=== PATIENT | male | born 1970 | race Caucasian/White ===

== ENCOUNTER 2017-07-24 01:43 | Emergency (ER) | payer SELFPAY ==
[~2017-07-24] VITALS: Ht 170.2 cm; Wt 75.0 kg
[2017-07-24 04:27] LABS: BASOPHILS % (AUTO) 0.2 % (0.0-2.0); EOSINOPHILS % (AUTO) 0.1 % (1.0-6.0); HEMATOCRIT 43.8 % (41-53); HEMOGLOBIN 15.4 g/dL (13.5-17.5); LYMPHOCYTES # (AUTO) 1.6 K/uL (1.0-4.8); MEAN CORPUSCULAR HEMOGLOBIN 33.4 pg (26.0-34.0); MEAN CORPUSCULAR HGB CONC 35.2 G/dL (31.0-37.0); MEAN CORPUSCULAR VOLUME 95 fL (80-100); MONOCYTES # (AUTO) 0.8 K/uL (0.1-1.0); MONOCYTES % (AUTO) 8.1 % (2.0-9.0); NEUTROPHILS # (AUTO) 7.5 K/uL (1.8-7.7); NEUTROPHILS % (AUTO) 75.6 % (40.0-70.0); RED BLOOD CELL COUNT(AUTO) 4.61 MIL/uL (4.50-5.90); RED CELL DISTRIBUTION WIDTH 13.2 % (11.5-14.5)
[2017-07-24 04:41] LABS: PLATELET COUNT (AUTO) 277 K/uL (150-450)
[2017-07-24 04:55] LABS: ANION GAP 8 mmol/L (8-16); CALCIUM, TOTAL 9.6 mg/dL (8.8-10.5); CARBON DIOXIDE 26 mmol/L (22-29); CHLORIDE 102 mmol/L (98-107); GLOMERULAR FILTR. RATE CALC > 60 mL/min (>60); GLUCOSE,RANDOM 142 mg/dL (70-110); POTASSIUM 3.7 mmol/L (3.5-5.1); SODIUM SERUM 136 mmol/L (136-145); UREA NITROGEN, BLOOD 14 mg/dL (7-18)
[2017-07-24 05:01] LABS: ALANINE AMINOTRANSFERASE 24 U/L (12-78); ALBUMIN 3.5 g/dL (3.4-5.0); ALKALINE PHOSPHATASE 124 U/L (46-116); ASPARTATE AMINOTRANSFERASE 22 U/L (15-37); BILIRUBIN,TOTAL 1.2 mg/dL (0.1-1.0); TOTAL PROTEIN, SERUM 7.4 g/dL (6.4-8.2)
[2017-07-24 05:07] LABS: PLATELET MORPHOLOGY COMMENT LARGE PLTS PRESENT
[2017-07-24 06:07] LABS: INFLUENZA TYPE A NEGATIVE FOR TYPE A (NEGATIVE); INFLUENZA TYPE B NEGATIVE FOR TYPE B (NEGATIVE)
[2017-07-24] MEDS ORDERED: SODIUM CHLORIDE 0.9% 1,000 ML IV ONE ×2 (06:30→07:00)
[2017-07-24] MEDS ORDERED: CeFAZolin 1 GM/DEXTROSE 50 ML IV ONE (06:30)
[2017-07-24] MEDS ORDERED: CeFAZolin 1 GM/DEXTROSE 10 ML IV ONE (06:30)
[2017-07-24] MEDS ORDERED: ONDANSETRON HCL 4 MG/2 ML VIAL IVP ONE (07:00)
[2017-07-24 09:15] VITALS: BP 118/90
== END 2017-07-24 09:38 | disposition home or self-care (01) ==
LOC: EMS 01:45
DX: L03.113 Cellulitis of right upper limb (principal); R50.9 Fever, unspecified; R25.2 Cramp and spasm
CPT/HCPCS: 36415; 80053; 83605; 85025; 87040; 87804; 93971; 96374; 99285; J0690; J7030; J2405

== ENCOUNTER 2020-09-04 21:37 | Emergency (ER) | payer MEDICAID ==
[~2020-09-04] VITALS: Ht 170.2 cm; Wt 78.6 kg
[~2020-09-04 21:37] MED LIST: AMLO-257 PO; METF-960 PO; NIAC500T7 PO; PANT-31 PO
[2020-09-04 23:05] LABS: APPEARANCE,URINE CLEAR (CLEAR); BILIRUBIN,URINE NEGATIVE (NEGATIVE); GLUCOSE, URINE (UA) >=1000 mg/dL (NEGATIVE); KETONES,URINE NEGATIVE (NEGATIVE); LEUKOCYTE ESTERASE ,URINE NEGATIVE (NEGATIVE); NITRATE,URINE NEGATIVE (NEGATIVE); OCCULT BLOOD,URINE NEGATIVE (NEGATIVE); PROTEIN,URINE NEGATIVE (NEGATIVE); UROBILINOGEN,URINE 0.2 mg/dL (<=1.0)
[2020-09-04 23:11] LABS: AMPHET/METH SCREEN,URINE NEGATIVE (NEGATIVE); BARBITURATE SCREEN, URINE NEGATIVE (NEGATIVE); BENZODIAZEPINES SCREEN,URINE POSITIVE (NEGATIVE); CANNABINOID SCREEN,URINE NEGATIVE (NEGATIVE); COCAINE SCREEN,URINE NEGATIVE (NEGATIVE); METHADONE SCREEN, URINE NEGATIVE (NEGATIVE); OPIATE SCREEN,URINE NEGATIVE (NEGATIVE)
[2020-09-04 23:14] LABS: PHENCYCLIDINE SCREEN,URINE NEGATIVE (NEGATIVE)
[2020-09-04 23:22] LABS: BACTERIA,URINE None Seen /HPF (None Seen); RBC,URINE 0-2 /HPF (0-2); WBC,URINE 0-2 /HPF (0-5)
[2020-09-04] MEDS ORDERED: ACETAMINOPHEN 325 MG TABLET PO ONE (23:30)
[2020-09-04 23:52] LABS: HEMATOCRIT 24.8 % (41-53); HEMOGLOBIN 8.1 g/dL (13.5-17.5); MEAN CORPUSCULAR HEMOGLOBIN 34.1 pg (26.0-34.0); MEAN CORPUSCULAR HGB CONC 32.8 G/dL (31.0-37.0); MEAN CORPUSCULAR VOLUME 104 fL (80-100); PLATELET COUNT (AUTO) 215 K/uL (150-450); RED BLOOD CELL COUNT(AUTO) 2.39 MIL/uL (4.50-5.90); RED CELL DISTRIBUTION WIDTH 14.7 % (11.5-14.5)
[2020-09-05 00:04] LABS: ANION GAP 7 mmol/L (8-16); CALCIUM, TOTAL 9.5 mg/dL (8.8-10.5); CARBON DIOXIDE 27 mmol/L (22-29); CHLORIDE 102 mmol/L (98-107); CREATININE 0.95 mg/dL (0.60-1.30); GLOMERULAR FILTR. RATE CALC > 60 mL/min (>60); GLUCOSE,RANDOM 316 mg/dL (70-110); POTASSIUM 3.7 mmol/L (3.5-5.1); SODIUM SERUM 136 mmol/L (136-145); UREA NITROGEN, BLOOD 3 mg/dL (7-18)
[2020-09-05 00:07] LABS: PROTHROMBIN TIME 10.5 SEC (9.4-11.6)
[2020-09-05 00:10] LABS: ALANINE AMINOTRANSFERASE 40 U/L (12-78); ALBUMIN 1.9 g/dL (3.4-5.0); ALKALINE PHOSPHATASE 152 U/L (46-116); ASPARTATE AMINOTRANSFERASE 24 U/L (15-37); BAND NEUTROPHILS % (MANUAL) 0 % (0-5); LIPASE 1143 U/L (73-393); TOTAL PROTEIN, SERUM 6.3 g/dL (6.4-8.2)
[2020-09-05 00:36] LABS: B-TYPE NATRIURETIC PEPTIDE 133 pg/mL (0-100)
[2020-09-05 00:39] LABS: INFLUENZA TYPE A NEGATIVE FOR TYPE A (NEGATIVE); INFLUENZA TYPE B NEGATIVE FOR TYPE B (NEGATIVE)
[2020-09-05 00:45] LABS: EOSINOPHILS % (MANUAL) 2 % (1-6); LYMPHOCYTES % (MANUAL) 18 % (22-44); MONOCYTES % (MANUAL) 7 % (2-9); SEGMENTED NEUTROPHILS % 73 % (40-70)
[2020-09-05] MEDS ORDERED: INSULIN REGULAR, HUMAN 100 UNITS/ML IVP ONE (00:45)
[2020-09-05 01:30] VITALS: BP 136/71
[2020-09-05 04:26] LABS: GLUCOSE,POINT OF CARE 158 MG/DL (70-110)
[2020-09-05 06:52] LABS: GLUCOSE,POINT OF CARE 280 MG/DL (70-110)
== END 2020-09-05 02:29 | disposition home or self-care (01) ==
LOC: EMS 21:37
DX: U07.1 COVID-19 (principal); K85.20 Alcohol induced acute pancreatitis without necrosis or infection
CPT/HCPCS: 36415; 71045; 80053; 80307; 81001; 82962; 83690; 83880; 84484; 85025; 85610; 87040; 87804; 93005; 96361; 96374; 99285; J1815; U0003; 82948

== ENCOUNTER 2020-09-06 09:42 | Emergency (ER) | payer MEDICAID ==
[~2020-09-06] VITALS: Ht 167.6 cm; Wt 68.2 kg
[2020-09-06 11:01] LABS: BASOPHILS % (AUTO) 0.4 % (0.0-2.0); EOSINOPHILS % (AUTO) 0.6 % (1.0-6.0); HEMATOCRIT 23.9 % (41-53); LYMPHOCYTES # (AUTO) 0.8 K/uL (1.0-4.8); LYMPHOCYTES % (AUTO) 8.1 % (22.0-44.0); MEAN CORPUSCULAR HEMOGLOBIN 34.5 pg (26.0-34.0); MEAN CORPUSCULAR HGB CONC 33.3 G/dL (31.0-37.0); MEAN CORPUSCULAR VOLUME 104 fL (80-100); MONOCYTES # (AUTO) 0.5 K/uL (0.1-1.0); NEUTROPHILS # (AUTO) 8.6 K/uL (1.8-7.7); PLATELET COUNT (AUTO) 314 K/uL (150-450); RED BLOOD CELL COUNT(AUTO) 2.31 MIL/uL (4.50-5.90); RED CELL DISTRIBUTION WIDTH 14.3 % (11.5-14.5)
[2020-09-06 11:03] LABS: NEUTROPHILS % (AUTO) 85.9 % (40.0-70.0)
[2020-09-06 11:08] LABS: ANION GAP 8 mmol/L (8-16); CALCIUM, TOTAL 9.4 mg/dL (8.8-10.5); CARBON DIOXIDE 28 mmol/L (22-29); CHLORIDE 100 mmol/L (98-107); GLOMERULAR FILTR. RATE CALC > 60 mL/min (>60); GLUCOSE,RANDOM 365 mg/dL (70-110); POTASSIUM 4.1 mmol/L (3.5-5.1); SODIUM SERUM 136 mmol/L (136-145); UREA NITROGEN, BLOOD 5 mg/dL (7-18)
[2020-09-06 11:14] LABS: ALANINE AMINOTRANSFERASE 30 U/L (12-78); ALBUMIN 1.9 g/dL (3.4-5.0); ALKALINE PHOSPHATASE 135 U/L (46-116); ASPARTATE AMINOTRANSFERASE 21 U/L (15-37); BILIRUBIN,TOTAL 0.7 mg/dL (0.1-1.0); LIPASE 896 U/L (73-393); TOTAL PROTEIN, SERUM 6.2 g/dL (6.4-8.2)
[2020-09-06 11:19] LABS: ACETONE,BLOOD NEGATIVE (NEGATIVE)
[2020-09-06 12:58] VITALS: BP 121/61
== END 2020-09-06 13:30 | disposition home or self-care (01) ==
LOC: EMS 09:47
DX: K85.90 Acute pancreatitis without necrosis or infection, unspecified (principal); K68.19 Other retroperitoneal abscess; E11.9 Type 2 diabetes mellitus without complications; Z79.84 Long term (current) use of oral hypoglycemic drugs
CPT/HCPCS: 74176; 99284

== ENCOUNTER 2020-12-25 14:07 | Emergency (ER) | payer MEDICAID, OTHER ==
[~2020-12-25] VITALS: Ht 170.2 cm; Wt 68.2 kg
[2020-12-25 14:31] LABS: GLUCOMETER DEV NAME(LOC) ERT.5; GLUCOSE,POINT OF CARE 254 MG/DL (70-110)
[2020-12-25] MEDS ORDERED: MECLIZINE HCL 25 MG TABLET PO ONE (19:45)
[2020-12-25 19:51] LABS: BASOPHILS % (AUTO) 0.4 % (0.0-2.0); EOSINOPHILS % (AUTO) 0.5 % (1.0-6.0); HEMATOCRIT 43.8 % (41-53); HEMOGLOBIN 14.9 g/dL (13.5-17.5); LYMPHOCYTES # (AUTO) 2.5 K/uL (1.0-4.8); LYMPHOCYTES % (AUTO) 38.3 % (22.0-44.0); MEAN CORPUSCULAR HEMOGLOBIN 32.1 pg (26.0-34.0); MEAN CORPUSCULAR HGB CONC 33.9 G/dL (31.0-37.0); MEAN CORPUSCULAR VOLUME 95 fL (80-100); MONOCYTES # (AUTO) 0.5 K/uL (0.1-1.0); MONOCYTES % (AUTO) 7.5 % (2.0-9.0); NEUTROPHILS # (AUTO) 3.5 K/uL (1.8-7.7); NEUTROPHILS % (AUTO) 53.3 % (40.0-70.0); PLATELET COUNT (AUTO) 265 K/uL (150-450); RED BLOOD CELL COUNT(AUTO) 4.62 MIL/uL (4.50-5.90); RED CELL DISTRIBUTION WIDTH 14.6 % (11.5-14.5)
[2020-12-25 20:05] LABS: ANION GAP 6 mmol/L (8-16); CALCIUM, TOTAL 9.5 mg/dL (8.8-10.5); CARBON DIOXIDE 27 mmol/L (22-29); CHLORIDE 97 mmol/L (98-107); CREATININE 0.98 mg/dL (0.60-1.30); GLOMERULAR FILTR. RATE CALC > 60 mL/min (>60); POTASSIUM 3.8 mmol/L (3.5-5.1); SODIUM SERUM 130 mmol/L (136-145); UREA NITROGEN, BLOOD 17 mg/dL (7-18)
[2020-12-25 20:08] LABS: GLUCOSE,RANDOM 500 mg/dL (70-110)
[2020-12-25] MEDS ORDERED: INSULIN REGULAR, HUMAN 100 UNITS/ML IVP ONE (20:15)
[2020-12-25] MEDS ORDERED: SODIUM CHLORIDE 0.9% 1,000 ML IV ONE (20:15)
[2020-12-25 21:36] VITALS: BP 148/85
[2020-12-25 21:59] LABS: GLUCOSE,POINT OF CARE 258 MG/DL (70-110)
== END 2020-12-25 22:03 | disposition home or self-care (01) ==
LOC: EMS 14:07
DX: E11.65 Type 2 diabetes mellitus with hyperglycemia (principal); Z79.84 Long term (current) use of oral hypoglycemic drugs; Z79.899 Other long term (current) drug therapy
CPT/HCPCS: 36415; 80048; 82962; 85025; 96361; 96374; 99283; J1815; 82948

== ENCOUNTER 2020-12-27 09:13 | Emergency (ER) | payer OTHER ==
[~2020-12-27] VITALS: Ht 170.2 cm; Wt 77.3 kg
[2020-12-27 12:38] VITALS: BP 137/60
== END 2020-12-27 12:58 | disposition home or self-care (01) ==
LOC: EMS 09:32
DX: E11.65 Type 2 diabetes mellitus with hyperglycemia (principal); I10 Essential (primary) hypertension; Z91.14 Patient's other noncompliance with medication regimen; Z79.84 Long term (current) use of oral hypoglycemic drugs
CPT/HCPCS: 82962; 99284

== ENCOUNTER 2021-02-15 17:51 | Emergency (ER) | payer OTHER ==
[~2021-02-15] VITALS: Ht 167.6 cm; Wt 77.0 kg
[2021-02-15 18:40] LABS: APPEARANCE,URINE CLEAR (CLEAR); BILIRUBIN,URINE NEGATIVE (NEGATIVE); GLUCOSE, URINE (UA) >=1000 mg/dL (NEGATIVE); KETONES,URINE TRACE mg/dL (NEGATIVE); LEUKOCYTE ESTERASE ,URINE NEGATIVE (NEGATIVE); NITRATE,URINE NEGATIVE (NEGATIVE); OCCULT BLOOD,URINE NEGATIVE (NEGATIVE); PH,URINE 6.5 (5.0-8.0); PROTEIN,URINE NEGATIVE (NEGATIVE)
[2021-02-15 18:55] LABS: BACTERIA,URINE None Seen /HPF (None Seen); RBC,URINE None Seen /HPF (0-2); WBC,URINE None Seen /HPF (0-5)
[2021-02-15 19:29] VITALS: BP 141/89
[2021-02-15 19:39] LABS: GLUCOSE,POINT OF CARE 319 MG/DL (70-110)
== END 2021-02-15 19:54 | disposition home or self-care (01) ==
LOC: EMS 17:55
DX: R39.15 Urgency of urination (principal); E11.9 Type 2 diabetes mellitus without complications; Z79.84 Long term (current) use of oral hypoglycemic drugs; Z79.899 Other long term (current) drug therapy
CPT/HCPCS: 81001; 82948; 82962; 99283; 99284

== ENCOUNTER 2023-08-12 09:07 | Emergency (ER) | payer OTHER ==
[~2023-08-12] VITALS: Ht 167.6 cm; Wt 64.5 kg
[~2023-08-12 09:07] MED LIST changes: +METF-1211 PO; -METF-960 PO
[2023-08-12] MEDS ORDERED: SITA100 PO (09:29)
[2023-08-12] MEDS ORDERED: TAMS0.4C94 PO (09:29)
[2023-08-12] MEDS ORDERED: METF-446 PO (09:29)
[2023-08-12 09:30] VITALS: TEMP 98.2
[2023-08-12] MEDS: ONDANSETRON HCL 4 MG/2 ML VIAL IVP ONE (09:40)
[2023-08-12] MEDS: SODIUM CHLORIDE 0.9% 1,000 ML IV ONE (09:41)
[2023-08-12 09:44] LABS: BASOPHILS % (AUTO) 0.3 % (0.0-2.0); EOSINOPHILS % (AUTO) 0.2 % (1.0-6.0); HEMATOCRIT 41.2 % (41-53); HEMOGLOBIN 14.2 g/dL (13.5-17.5); LYMPHOCYTES # (AUTO) 0.6 K/uL (1.0-4.8); MEAN CORPUSCULAR HEMOGLOBIN 35.7 pg (26.0-34.0); MEAN CORPUSCULAR HGB CONC 34.5 G/dL (31.0-37.0); MEAN CORPUSCULAR VOLUME 104 fL (80-100); MONOCYTES # (AUTO) 0.4 K/uL (0.1-1.0); MONOCYTES % (AUTO) 3.5 % (2.0-9.0); NEUTROPHILS # (AUTO) 11.6 K/uL (1.8-7.7); PLATELET COUNT (AUTO) 189 K/uL (150-450); RED BLOOD CELL COUNT(AUTO) 3.98 MIL/uL (4.50-5.90); WHITE BLOOD COUNT (AUTO) 12.7 K/uL (4.5-11.0)
[2023-08-12 09:53] LABS: ANION GAP 10 mmol/L (8-16); CALCIUM, TOTAL 9.7 mg/dL (8.8-10.5); CARBON DIOXIDE 31 mmol/L (22-29); CHLORIDE 93 mmol/L (98-107); CREATININE 0.84 mg/dL (0.60-1.30); GLOMERULAR FILTR. RATE CALC > 60 mL/min (>60); GLUCOSE,RANDOM 335 mg/dL (70-110); POTASSIUM 3.1 mmol/L (3.5-5.1); SODIUM SERUM 133 mmol/L (136-145); UREA NITROGEN, BLOOD 8 mg/dL (7-18)
[2023-08-12 09:58] LABS: ALANINE AMINOTRANSFERASE 71 U/L (12-78); ALBUMIN 3.7 g/dL (3.4-5.0); ALKALINE PHOSPHATASE 260 U/L (46-116); ASPARTATE AMINOTRANSFERASE 156 U/L (15-37); BILIRUBIN,TOTAL 3.2 mg/dL (0.1-1.0); LIPASE 24 U/L (16-77); TOTAL PROTEIN, SERUM 6.9 g/dL (6.4-8.2)
[2023-08-12 10:00] LABS: B-TYPE NATRIURETIC PEPTIDE 12 pg/mL (0-100); TROPONIN I-HIGH SENSITIVITY 6 ng/L (<76)
[2023-08-12 10:16] LABS: COVID AG,FIA SOURCE NASAL SWAB
[2023-08-12 10:28] LABS: RBC MORPHOLOGY COMMENT ABNORMAL RBC MORPH
[2023-08-12 10:43] LABS: INFLUENZA TYPE A NEGATIVE FOR TYPE A (NEGATIVE); INFLUENZA TYPE B NEGATIVE FOR TYPE B (NEGATIVE); SARS-COV2 (COVID) ANTIGEN,FIA Negative (Negative)
[2023-08-12 13:13] LABS: APPEARANCE,URINE CLEAR (CLEAR); BILIRUBIN,URINE NEGATIVE (NEGATIVE); COLOR,URINE YELLOW (YELLOW); GLUCOSE, URINE (UA) >=1000 mg/dL (NEGATIVE); LEUKOCYTE ESTERASE ,URINE NEGATIVE (NEGATIVE); NITRATE,URINE NEGATIVE (NEGATIVE); OCCULT BLOOD,URINE NEGATIVE (NEGATIVE); PROTEIN,URINE 30-70 mg/dL (NEGATIVE); SPECIFIC GRAVITIY, URINE 1.034 (1.003-1.030)
[2023-08-12 13:21] LABS: RBC,URINE None Seen /HPF (0-2); WBC,URINE 0-2 /HPF (0-5)
[2023-08-12 13:22] LABS: BACTERIA,URINE None Seen /HPF (None Seen); SQUAMOUS EPITHELIAL CELL,UR Few /LPF (None Seen)
[2023-08-12] MEDS ORDERED: ONDA-104 PO (14:51)
[2023-08-12] MEDS: BISMUTH SUBSALICYLATE 525 MG/30 ML SUSPENSION UDCUP PO ONE (14:52)
[2023-08-12] MEDS: POTASSIUM CHLORIDE 20 MEQ ER TABLET PO ONE (14:52)
[2023-08-12 15:04] VITALS: BP 146/89; PULSE 94; RESP 16
== END 2023-08-12 15:09 | disposition home or self-care (01) ==
LOC: EMS 09:07
DX: E11.65 Type 2 diabetes mellitus with hyperglycemia (principal); F10.10 Alcohol abuse, uncomplicated; R07.89 Other chest pain; R10.13 Epigastric pain; Z20.822 Contact with and (suspected) exposure to COVID-19
CPT/HCPCS: 99285; 74176; 96374; 76700; 71045; 96361; 87426; 80053; 81001; 82962; 83690; 83880; 84484; 85025; 87804; 36415; 93005; J2405; J7030